=== PATIENT | female | born 2005 | race Caucasian/White ===

== ENCOUNTER 2024-12-22 11:16 | Emergency (ER) | payer OTHER, SELFPAY ==
[2024-12-22 11:32] VITALS: BP 123/76; PULSE 103; RESP 18; TEMP 36.6; O2SAT 100
[2024-12-22 12:13] LABS: EDSTREPNEGPOS1 Negative (Negative)
[2024-12-22 12:21] LABS: EDCOVIDSCREEN Negative (Negative); EDINFLUASCREEN Negative (Negative); EDINFLUBSCREEN Negative (Negative)
--- NOTE | 2024-12-22 12:27 | ED.GENADULT ---
HPI - General Adult General Chief complaint: Upper Respiratory Infection Stated complaint: SINUS CONGESTION Source: patient Mode of arrival: ambulatory Limitations: no limitations History of Present Illness HPI narrative: patient is a 19-year-old female presenting with complaint of sinus congestion. Additional symptoms reported include cough, ear pressure, drainage. Symptoms began 3 days ago. No treatment initiated prior to arrival. 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 Denies any known direct exposure to COVID, flu, strep, pneumonia. No additional complaints Related Data Home Medications ?Medication ?Instructions ?Recorded ?Confirmed ?Last Taken ?Type No Home Medications 12/22/24 12/22/24 Unknown History Allergies Allergy/AdvReac Type Severity Reaction Status Date / Time No Known Allergies Allergy Verified 12/22/24 11:29 Review of Systems Review of Systems: CONSTITUTIONAL: Denies body aches, fever, chills, or sweats. EYES: Denies visual changes, redness, or discharge. ENT: Denies rhinorrhea, sore throat. CARDIOVASCULAR: Denies chest pain, palpitations, or edema. RESPIRATORY: Denies dyspnea. GASTROINTESTINAL: Denies abdominal pain, nausea, vomiting, or diarrhea. GENITOURINARY: Denies dysuria or hematuria. SKIN: Denies rash, itching, or wounds. MUSCULOSKELETAL: Denies back pain, joint pain, or myalgia. NEUROLOGIC: Denies headache, numbness, tingling, or weakness. PSYCH: Denies depression or anxiety. All systems reviewed & are unremarkable except as noted in HPI and below Exam Narrative: GENERAL: Well-appearing, well-nourished, Morbidly obese, and in no acute distress. HEAD: Normocephalic, atraumatic. EYES: EOMI. No redness or drainage. Conjunctivae normal. ENT: Mucous membranes pink and moist. Nares clear. No rhinorrhea. TMs normal bilaterally. tonsils are surgically absent. There is scant amount of clear, postnasal drainage. Throat normal. Uvula midline. NECK: Normal AROM. Supple. No lymphadenopathy. CHEST: No respiratory distress. Clear to auscultation. HEART: Regular rate and rhythm. No murmur appreciated. Normal peripheral pulses. ABDOMEN: Soft, nontender, nondistended, normal active bowel sounds. MUSCULOSKELETAL: No bony tenderness. EXTREMITIES: Normal range of motion. No edema. SKIN: Warm, dry, no rash. Capillary refill normal. Normal skin turgor. NEURO: No focal deficits. Alert and oriented x3. Gait steady. PSYCH: Normal affect. No signs of depression or anxiety. Course Course Level of Care: Express Care Visit Vital Signs Vital signs: Vital Signs Temperature 97.9 F 12/22/24 11:32 Pulse Rate 103 H 12/22/24 11:32 Respiratory Rate 18 12/22/24 11:32 Blood Pressure 123/76 12/22/24 11:32 Pulse Oximetry 100 12/22/24 11:32 Temperature 97.9 F 12/22/24 11:32 Pulse Rate 103 H 12/22/24 11:32 Respiratory Rate 18 12/22/24 11:32 Blood Pressure 123/76 12/22/24 11:32 Pulse Oximetry 100 12/22/24 11:32 Medical Decision Making MDM Narrative Medical decision making narrative: Please be advised this is a medical document. It is intended for [id number] communication. It is written in medical language and may contain unfamiliar abbreviations or verbiage. Medical documents are intended to carry relevant information, facts as evident, and the clinical opinion of the practitioner at the time of the encounter. This dictation may have been done utilizing a voice recognition system. Attempts have been made to correct errors. However, there may be uncorrected grammatical, spelling, and recognition errors present. Vital Signs Vital Signs: Vital Signs Temperature 97.9 F 12/22/24 11:32 Pulse Rate 103 H 12/22/24 11:32 Respiratory Rate 18 12/22/24 11:32 Blood Pressure 123/76 12/22/24 11:32 Pulse Oximetry 100 12/22/24 11:32 Temperature 97.9 F 12/22/24 11:32 Pulse Rate 103 H 12/22/24 11:32 Respiratory Rate 18 12/22/24 11:32 Blood Pressure 123/76 12/22/24 11:32 Pulse Oximetry 100 12/22/24 11:32 Lab Data Lab results reviewed: Yes I reviewed the patient's lab results. Lab results narrative: point of care test all unremarkable. Labs: Lab Results 12/22/24 12/22/24 Range/Units 12:10 12:18 POC Influenza A Ag Negative (Negative) POC Influenza B Ag Negative (Negative) POC SARS CoV-2 Ag Negative (Negative) POC Grp A Strep Screen Negative (Negative) Discharge Plan Discharge Clinical Impression: Upper respiratory infection Patient Disposition: Home Condition: Stable Instructions: Antibiotic Form, Cold Symptoms (ED) Additional Instructions: Go straight to ER should your symptoms become worse or should any new symptoms develop Patient Language: Russian Prescriptions: No Action No Home Medications Follow-up/Referrals: PHYSICIAN,[employer] ATTENDANT [Primary Care Provider] - 12/23/24 Time of Disposition: 12:28
== END 2024-12-22 12:32 | disposition home or self-care (01) ==
PROVIDERS: Emergency Provider Registered Nurse
DX: J06.9 Acute upper respiratory infection, unspecified (principal); Z20.822 Contact with and (suspected) exposure to COVID-19
CPT/HCPCS: 87081; 87426; 87804; 87880; 99203; G0463